=== PATIENT | female | born 1985 | race Caucasian/White ===

== ENCOUNTER 2018-11-10 02:31 | Emergency (ER) | payer OTHER ==
[2018-11-10] MEDS: ALPRAZOLAM 0.25 MG TAB PO (02:51)
[2018-11-10] MEDS: IBUPROFEN 600 MG TAB PO (02:54)
== END 2018-11-10 03:16 | disposition home or self-care (01) ==
LOC: E/R 02:31
DX: F41.9 Anxiety disorder, unspecified (principal)
CPT/HCPCS: 99283